=== PATIENT | female | born 1980 | race Caucasian/White ===

== ENCOUNTER 2017-01-24 09:52 | Emergency (ER) | payer OTHER ==
[~2017-01-24] VITALS: Ht 167.6 cm; Wt 81.0 kg
[2017-01-24 09:55] VITALS: BP 144/85; PULSE 94; RESP 16; TEMP 98.4; O2SAT 98
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
[2017-01-24] MEDS ORDERED: ACYC800T PO (10:23)
[2017-01-24] MEDS ORDERED: NEUR100C PO (10:23)
== END 2017-01-24 10:35 | disposition home or self-care (01) ==
LOC: PHEFT 09:52
DX: B02.9 Zoster without complications (principal); S80.862A Insect bite (nonvenomous), left lower leg, initial encounter; S80.861A Insect bite (nonvenomous), right lower leg, initial encounter; S40.862A Insect bite (nonvenomous) of left upper arm, initial encounter; S40.861A Insect bite (nonvenomous) of right upper arm, initial encounter; W57.XXXA Bitten or stung by nonvenomous insect and other nonvenomous arthropods, initial encounter; F17.210 Nicotine dependence, cigarettes, uncomplicated
CPT/HCPCS: 99282

== ENCOUNTER 2017-06-08 17:32 | Emergency (ER) | payer OTHER ==
[~2017-06-08 17:32] MED LIST: ACYC800T PO; NEUR100C PO
[2017-06-08 17:39] VITALS: BP 138/97; PULSE 88; RESP 20; TEMP 99.4; O2SAT 98
[2017-06-08] MEDS ORDERED: RESP: ALBUTEROL 2.5 MG/IPRATROPIUM 0.5 MG NEB (SCH) NEB ONE (18:30)
[2017-06-08] MEDS ORDERED: KETOROLAC TROMETHAMINE 30 MG/ML (IVP) VIAL IV PUSH ONE (18:30)
[2017-06-08] MEDS ORDERED: DEXAMETHASONE SOD PHOS 4 MG/ML VIAL IV PUSH ONE (18:30)
[2017-06-08] MEDS ORDERED: KETOROLAC TROMETHAMINE 60 MG/2 ML (IM) VIAL IM ONE (18:45)
[2017-06-08] MEDS ORDERED: DEXAMETHASONE SOD PHOS 4 MG/ML VIAL IM ONE (18:45)
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
[2017-06-08] MEDS ORDERED: VENTAER INH (19:14)
[2017-06-08] MEDS ORDERED: PRED20 PO (19:14)
[2017-06-08] MEDS ORDERED: MAGICPED SWISH-SWAL (19:15)
== END 2017-06-08 19:23 | disposition home or self-care (01) ==
LOC: PHED 17:32 → PHEFT 19:23
DX: J20.9 Acute bronchitis, unspecified (principal); B97.89 Other viral agents as the cause of diseases classified elsewhere; R51 Headache; R07.0 Pain in throat
CPT/HCPCS: 87081; 87880; 94640; 94664; 96372; 99284; J1100; J1885

== ENCOUNTER 2017-12-26 04:48 | Emergency (ER) | payer OTHER ==
[~2017-12-26 04:48] MED LIST changes: -ACYC800T PO; +MAGICPED SWISH-SWAL; -NEUR100C PO; +PRED20 PO; +VENTAER INH
--- NOTE | 2017-12-26 05:01 | PD ---
HPI Chief Complaint: Intoxication Time Seen by Provider: 04:50 Travel History International Travel<30 days: No Contact w/Intl Traveler<30days: No History of Present Illness HPI 37-year-old woman, apparently brought in by bystanders to being seen intoxicated in public. Patient states she was drinking heavily tonight. Denies any recent illness or injury. No complaints. History Past Medical History Medical History: Denies Significant Hx Social History Alcohol Use: Yes (occaisional) Tobacco Use: No Allergies-Medications (Allergen,Severity, Reaction): Coded Allergies: acetaminophen (Unverified Allergy, Severe, 06/08/17) penicillin G (Unverified Allergy, Severe, 06/08/17) Reported Meds & Prescriptions Reported Meds & Active Scripts Active Magic Mouthwash Pediatric/Adult Liq (Lidocaine/Diphenhydr/Alum/Mg/Simeth) 60 Ml Susp 5 Ml SWISH-SWAL ACHS Each 5mL contains: Diphenydramine 4.5mg, Viscous Lidocaine 2% 10mg, Maalox Advanced Regular Strength 2.7ml Ventolin Hfa 18 GM Inh (Albuterol Sulfate) 90 Mcg/Act Aer 2 Puff INH Q6H PRN Prednisone 20 Mg Tab 40 Mg PO DAILY Take 40 mg (2 tablets) daily for 5 days Review of Systems ROS Limitations: Intoxication Except as stated in HPI: all other systems reviewed are Neg Physical Exam Exam Limitations: Intoxication Narrative GENERAL: 37-year-old woman, slurred speech and intoxication, otherwise no acute distress. SKIN: Focused skin assessment warm/dry. Some scattered abrasions of both knees. HEAD: Atraumatic. Normocephalic. EYES: Pupils equal and round. No scleral icterus. No injection or drainage. ENT: No nasal bleeding or discharge. Mucous membranes pink and moist. NECK: Trachea midline. Moves neck freely, no evidence of tenderness. CARDIOVASCULAR: Regular rate and rhythm. No murmur appreciated. RESPIRATORY: No accessory muscle use. Clear to auscultation. Breath sounds equal bilaterally. GASTROINTESTINAL: Abdomen soft, non-tender, nondistended. Hepatic and splenic margins not palpable. MUSCULOSKELETAL: No obvious deformities. Scabs of the knees, no other evidence of bony injury. NEUROLOGICAL: Awake but sluggishly alert. No obvious cranial nerve deficits. Motor grossly within normal limits. Speech is slurred. Unsteady. MDM Medical Decision Making Medical Screen Exam Complete: Yes Emergency Medical Condition: Yes Differential Diagnosis Intoxication, illicit drug use, sedative hypnotic use, occult injury or trauma, other Narrative Course Medical decision-making 37-year-old woman presents emergency department brought in for intoxication. No evidence of occult injury. No evidence of respiratory depression or compromise. Looks well. Will sober up in the ED, discharge in a.m. Diagnosis Primary Impression: Alcohol intoxication Referrals: [facility] 1 day Additional Instructions: Drink alcohol only in moderation. Drink plenty of fluids stay well-hydrated. Follow-up with [facility] if needed for alcohol abuse treatment. Med/Other Pt SpecificInfo: No Change to Meds Disposition: 01 DISCHARGE HOME Condition: Stable Alfonzo Valderrama MD Dec 26, 2017 05:01
[2017-12-26 05:08] VITALS: BP 103/81; PULSE 96; RESP 18; TEMP 95.3; O2SAT 96
[2017-12-26 06:41] VITALS: BP 132/41; PULSE 96; RESP 20; TEMP 96.2; O2SAT 96
[2017-12-26 08:10] VITALS: BP 119/76; PULSE 118; RESP 17; O2SAT 97
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
[2017-12-26 10:27] VITALS: BP 116/74
== END 2017-12-26 10:29 | disposition home or self-care (01) ==
LOC: PHED 04:48
DX: F10.129 Alcohol abuse with intoxication, unspecified (principal); Z88.0 Allergy status to penicillin
CPT/HCPCS: 99282

== ENCOUNTER 2017-12-27 18:59 | Observation (INO) | payer MEDICAID, OTHER ==
[~2017-12-27] VITALS: Ht 167.6 cm; Wt 78.0 kg
[2017-12-27 19:08] VITALS: BP 139/89; PULSE 80; RESP 16; TEMP 98.4; O2SAT 98
[2017-12-27] MEDS ORDERED: SODIUM CHLOR 0.9% 1000 ML INJ 1,000 ML IV SCH (19:16)
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
[2017-12-27] MEDS ORDERED: SODIUM CHLORIDE 0.9% FLUSH 10 ML FLUSH IVF PRN (19:30)
[2017-12-27] MEDS ORDERED: PANTOPRAZOLE SODIUM 40 MG VIAL IVP ONE (19:30)
--- NOTE | 2017-12-27 20:17 | RADRPT ---
EXAM DATE/TIME: 12/27/2017 19:39 [facility] COMPARISON: No previous studies available for comparison. INDICATIONS : Cory states she swallowed a pen or a knife while intoxicated. Vomiting blood. MEDICAL HISTORY : None. SURGICAL HISTORY : None. ENCOUNTER: Initial ACUITY: 1 day PAIN SCORE: 0/10 LOCATION: Bilateral chest FINDINGS: A single view of the chest demonstrates the lungs to be symmetrically aerated without evidence of mas s, infiltrate or effusion. The cardiomediastinal contours are unremarkable. Osseous structures are intact. CONCLUSION: No acute disease. Lorenzo Bagley MD FACR on December 27, 2017 at 20:15 Board Certified Radiologist. This report was verified electronically.
[2017-12-27 20:27] LABS: AUTOMATED NEUTROPHIL # 3.8 TH/MM3 (1.8-7.7); BASOPHIL % 0.8 % (0.0-2.0); EOSINOPHIL # 0.2 TH/MM3 (0-0.4); EOSINOPHIL % 2.5 % (0.0-4.0); HEMATOCRIT 37.6 % (35.0-46.0); LYMPH % 26.9 % (9.0-44.0); LYMPHOCYTE # 1.6 TH/MM3 (1.0-4.8); MEAN CORPUSCULAR HEMOGLOBIN 33.9 PG (27.0-34.0); MEAN CORPUSCULAR HGB CONC 34.6 % (32.0-36.0); MONOCYTE # 0.5 TH/MM3 (0-0.9); NEUT % 61.8 % (16.0-70.0); PLATELET COUNT 273 TH/MM3 (150-450); RED BLOOD COUNT 3.84 MIL/MM3 (4.00-5.30); RED CELL DISTRIBUTION WIDTH 13.5 % (11.6-17.2); WHITE BLOOD COUNT 6.1 TH/MM3 (4.0-11.0)
[2017-12-27 20:33] LABS: BACTERIA, URINE OCC /hpf; BILIRUBIN, URINE NEG (NEG); BLOOD, URINE LARGE (NEG); GLUCOSE,URINE NEG (NEG); KETONE, URINE NEG (NEG); NITRITE,URINE NEG (NEG); SQUAMOUS EPITHELIAL CELL URINE 2 /hpf (0-5); URINE COLOR LIGHT-YELLOW (YELLW/STRAW); URINE LEUKOCYTE ESTERASE SMALL (NEG)
[2017-12-27 20:42] LABS: INTERNATIONAL NORMALIZED RATIO 0.9 RATIO; PROTHROMBIN TIME - PATIENT 9.5 SEC (9.8-11.6)
[2017-12-27 20:52] LABS: ALKALINE PHOSPHATASE 105 U/L (45-117); ALT (GPT) 77 U/L (10-53); TOTAL BILIRUBIN ADULT 0.5 MG/DL (0.2-1.0); TOTAL PROTEIN 7.1 GM/DL (6.4-8.2)
[2017-12-27 20:55] LABS: ALBUMIN 3.4 GM/DL (3.4-5.0); AST (GOT) 53 U/L (15-37); BICARBONATE 26.2 MEQ/L (21.0-32.0); BLOOD UREA NITROGEN 12 MG/DL (7-18); CALCIUM 8.8 MG/DL (8.5-10.1); CHLORIDE 106 MEQ/L (98-107); GLOMERULAR FILTRATION RATE 93 ML/MIN (>89); GLUCOSE,RANDOM 103 MG/DL (74-106); SODIUM (NA) 137 MEQ/L (136-145)
[2017-12-27 21:00] VITALS: BP 140/88; PULSE 62; RESP 16; O2SAT 99
[2017-12-27] MEDS ORDERED: KETOROLAC TROMETHAMINE 30 MG/ML (IVP) VIAL IV PUSH ONE (21:15)
[2017-12-27] MEDS ORDERED: IOHEXOL 350 MG/ML 10 ML VIAL (for RAD DIAG) IVCONTRAST ONE (22:05)
--- NOTE | 2017-12-27 22:17 | RADRPT ---
EXAM DATE/TIME: 12/27/2017 21:59 [facility] COMPARISON: No previous studies available for comparison. INDICATIONS : Patient swallowed an unknown object, hemoptysis. IV CONTRAST: 100 cc Omnipaque 350 (iohexol) IV ORAL CONTRAST: No oral contrast ingested. RADIATION DOSE: 7.31 CTDIvol (mGy) MEDICAL HISTORY : None SURGICAL HISTORY : Hysterectomy. ENCOUNTER: Initial ACUITY: 4 - 6 days PAIN SCALE: 5/10 LOCATION: Bilateral lower quadrant TECHNIQUE: Volumetric scanning of the abdomen and pelvis was performed. Using automated exposure control and ad justment of the mA and/or kV according to patient size, radiation dose was kept as low as reasonably achievable to obtain optimal diagnostic quality images. DICOM format image data is available electro nically for review and comparison. FINDINGS: On the hooker machine tender film there is radiopaque foreign body in the stomach that looks like the end of an ink p en. KUB is much more sensitive for such. Lower lungs are clear. Moderate fatty replacement of the liver without ductal dilatation The spleen and pancreas are unremarkable. The adrenals and kidneys appear unremarkable There is no retroperitoneal adenopathy Cecum, and appendix appear unremarkable In the Pelvis scattered diverticula are noted without diverticulitis The bladder and adnexal regions are unremarkable There is no ascites Review of bone windows reveals only degenerative changes. CONCLUSION: Radiopaque foreign body in the fundus of the stomach as above. 1. Moderate fatty replacement in the liver Lorenzo Bagley MD FACR on December 27, 2017 at 22:10 Board Certified Radiologist. This report was verified electronically.
[2017-12-27] MEDS ORDERED: LORazepam 1 MG TAB PO PRN (23:45)
[2017-12-27] MEDS ORDERED: LORazepam 2 MG/ML VIAL IV PUSH PRN ×3 (23:45)
[2017-12-27] MEDS ORDERED: LORazepam 2 MG TAB PO PRN (23:45)
[2017-12-27] MEDS ORDERED: FLUMAZENIL 0.5 MG/5 ML VIAL IV PUSH PRN (23:45)
[2017-12-27] MEDS ORDERED: ONDANSETRON HCL 4 MG/2 ML VIAL IV PUSH PRN (23:45)
[2017-12-27] MEDS ORDERED: SODIUM CHLORIDE 0.9% FLUSH 10 ML FLUSH IV FLUSH PRN (23:45)
[2017-12-28] VITALS: BP 140/88; PULSE 80; RESP 18; O2SAT 99
[2017-12-28] MEDS ORDERED: FOLI1TAB6 PO (00:02)
[2017-12-28] MEDS ORDERED: VIST50CA PO (00:02)
[2017-12-28] MEDS ORDERED: LORA-474 PO (00:02)
[2017-12-28] MEDS ORDERED: VITA100T54 PO (00:02)
[2017-12-28] MEDS ORDERED: IBUP1TAB7 PO (00:02)
[2017-12-28] MEDS ORDERED: PROM25TA10 PO (00:02)
[2017-12-28] MEDS ORDERED: CLON0.1T PO (00:02)
--- NOTE | 2017-12-28 00:36 | HHI.HP ---
[facility] No Primary Care Physician Admission Diagnosis FB ingestion with hematemesis Diagnoses: Travel History International Travel<30 Days: No Contact w/Intl Traveler <30 Da: No Traveled to Known Affected Are: No History of Present Illness 37-year-old female with a past medical history significant for alcohol abuse presents to the emergency department for evaluation of hematemesis. The patient is on day 3 of detox from alcohol at [facility] when she had 3 episodes of bloody emesis. She reports that she and her friends were drinking 3 days ago and she remembers swallowing a pen. She denies any current abdominal pain. No chest pain or shortness of breath. Mild tremors. No nausea /diarrhea. No weakness. Review of Systems Except as stated in HPI: all other systems reviewed are Neg Past Family Social History Past Medical History Alcohol abuse History of uterine cancer Past Surgical History Hysterectomy with bilateral nephrectomy Breast augmentation Reported Medications Reported Meds & Active Scripts Active Reported Clonidine (Clonidine HCl) 0.1 Mg Tab 0.1 Mg PO BID Vistaril (Hydroxyzine Pamoate) 50 Mg Cap 50 Mg PO HS Folic Acid 1 Mg Tablet 1 Mg PO DAILY Vitamin B-1 (Thiamine HCl) 100 Mg Tab 100 Mg PO DAILY Phenergan (Promethazine HCl) 25 Mg Tablet 25 Mg PO Q6H PRN Ibuprofen 800 Mg Tab 800 Mg PO Q8H PRN Ativan (Lorazepam) 1 Mg Tab 1 Mg PO Q8H PRN Allergies: Coded Allergies: acetaminophen (Unverified Allergy, Severe, 12/27/17) penicillin G (Unverified Allergy, Severe, 12/27/17) Family History Mother with diabetes and coronary artery disease. Father at 42 of an [place]. Social History Smokes approximately one pack per day. Quit alcohol 3 days ago, prior to this was drinking approximately 2 L of vodka daily. Denies illicit drugs. Physical Exam Vital Signs Vital Signs Date Time Temp Pulse Resp B/P (MAP) Pulse Ox O2 Delivery O2 Flow Rate FiO2 12/27/17 21:00 62 16 140/88 (105) 99 Room Air 12/27/17 19:08 98.4 80 16 139/89 (705) 98 Physical Exam GENERAL: female lying in bed SKIN: No rashes, ecchymoses or lesions. Cool and dry. HEAD: Atraumatic. Normocephalic. No temporal or scalp tenderness. EYES: Pupils equal round and reactive. Extraocular motions intact. No scleral icterus. No injection or drainage. ENT: Nose without bleeding, purulent drainage or septal hematoma. Throat without erythema, tonsillar hypertrophy or exudate. Uvula midline. Airway patent. NECK: Trachea midline. No JVD or lymphadenopathy. Supple, nontender, no meningeal signs. CARDIOVASCULAR: Regular rate and rhythm without murmurs, gallops, or rubs. RESPIRATORY: Clear to auscultation. Breath sounds equal bilaterally. No wheezes , rales, or rhonchi. GASTROINTESTINAL: Abdomen soft, diffusely tender to palpation, greatest in the right upper quadrant, nondistended. No hepato-splenomegaly, or palpable masses. No guarding. MUSCULOSKELETAL: Extremities without clubbing, cyanosis, or edema. No joint tenderness, effusion, or edema noted. No calf tenderness. NEUROLOGICAL: Awake and alert. Cranial nerves II through XII intact. Motor and sensory grossly within normal limits. Normal speech. Laboratory Laboratory Tests Test 12/27/17 19:50 White Blood Count 6.1 Red Blood Count 3.84 Hemoglobin 13.0 Hematocrit 37.6 Mean Corpuscular Volume 98.0 Mean Corpuscular Hemoglobin 33.9 Mean Corpuscular Hemoglobin Concent 34.6 Red Cell Distribution Width 13.5 Platelet Count 273 Mean Platelet Volume 8.0 Neutrophils (%) (Auto) 61.8 Lymphocytes (%) (Auto) 26.9 Monocytes (%) (Auto) 8.0 Eosinophils (%) (Auto) 2.5 Basophils (%) (Auto) 0.8 Neutrophils # (Auto) 3.8 Lymphocytes # (Auto) 1.6 Monocytes # (Auto) 0.5 Eosinophils # (Auto) 0.2 Basophils # (Auto) 0.0 CBC Comment DIFF FINAL Differential Comment Prothrombin Time 9.5 Prothromb Time International Ratio 0.9 Activated Partial Thromboplast Time 22.7 Urine Color LIGHT-YELLOW Urine Turbidity CLEAR Urine pH 8.0 Urine Specific [place] 1.010 Urine Protein NEG Urine Glucose (UA) NEG Urine Ketones NEG Urine Occult Blood LARGE Urine Nitrite NEG Urine Bilirubin NEG Urine Urobilinogen LESS THAN 2.0 Urine Leukocyte Esterase SMALL Urine RBC 103 Urine WBC 31 Urine Squamous Epithelial Cells 2 Urine Bacteria OCC Microscopic Urinalysis Comment CULTURE INDICATED Blood Urea Nitrogen 12 Creatinine 0.70 Random Glucose 103 Total Protein 7.1 Albumin 3.4 Calcium Level 8.8 Alkaline Phosphatase 105 Aspartate Amino Transf (AST/SGOT) 53 Alanine Aminotransferase (ALT/SGPT) 77 Total Bilirubin 0.5 Sodium Level 137 Potassium Level 5.0 Chloride Level 106 Carbon Dioxide Level 26.2 Anion Gap 5 Estimat Glomerular Filtration Rate 93 Lipase 517 Ethyl Alcohol Level LESS THAN 3 Date/Time Source Procedure Growth Status 12/27/17 19:50 Urine Clean Catch Urine Culture Pending Received Result Diagram: 12/27/17194912/27/171949 Fina VTE Risk Assessment Fina VTE Risk Assessment: No/Low Risk (score <= 1) Fina Risk Assessment Model Point Value = 1 Point Value = 2 Point Value = 3 Point Value = 5 Age 41-60 Minor surgery BMI > 25 kg/m2 Swollen legs Varicose veins or History of unexplained or recurrent spontaneous Oral contraceptives or hormone replacement Sepsis (< 1 month) Serious lung disease, including pneumonia (< 1 month) Abnormal pulmonary function Acute myocardial infarction Congestive heart failure (< 1 month) History of inflammatory bowel disease Medical patient at bed rest Age 61-74 Arthroscopic surgery Major open surgery (> 45 min) Laparoscopic surgery (> 45 min) Malignancy Confined to bed (> 72 hours) Immobilizing plaster cast Central venous access Age >= 75 History of VTE Family history of VTE Factor V Leiden Prothrombin [id number] Lupus anticoagulant Anticardiolipin antibodies Elevated serum homocysteine Heparin-induced thrombocytopenia Other congenital or acquired thrombophilia Stroke (< 1 month) Elective arthroplasty Hip, pelvis, or leg fracture Acute spinal cord injury (< 1 month) Prophylaxis Regimen Total Risk Factor Score Risk Level Prophylaxis Regimen 0-1 Low Early ambulation 2 Moderate Order ONE of the following: *Sequential Compression Device (SCD) *Heparin 5000 units SQ BID 3-4 Higher Order ONE of the following medications: *Heparin 5000 units SQ TID *Enoxaparin/Lovenox 40 mg SQ daily (WT < 150 kg, CrCl > 30 mL/min) *Enoxaparin/Lovenox 30 mg SQ daily (WT < 150 kg, CrCl > 10-29 mL/min) *Enoxaparin/Lovenox 30 mg SQ BID (WT < 150 kg, CrCl > 30 mL/min) AND/OR *Sequential Compression Device (SCD) 5 or more Highest Order ONE of the following medications: *Heparin 5000 units SQ TID (Preferred with Epidurals) *Enoxaparin/Lovenox 40 mg SQ daily (WT < 150 kg, CrCl > 30 mL/min) *Enoxaparin/Lovenox 30 mg SQ daily (WT < 150 kg, CrCl > 10-29 mL/min) *Enoxaparin/Lovenox 30 mg SQ BID (WT < 150 kg, CrCl > 30 mL/min) AND *Sequential Compression Device (SCD) Assessment and Plan Assessment and Plan Assessment/plan 1. Foreign body ingestion CT of the abdomen/pelvis shows a radiopaque foreign body in the fundus of the stomach, personally reviewed Gastroenterology consulted, appreciate assistance Nothing by mouth 2. Alcohol abuse Patient quit drinking 3 days ago Thiamine/folate/multivitamins [facility] protocol Monitor for signs of withdrawal FEN NPO Electrolytes: Monitor and replete when necessary NS at 100 cc/hr Kiera Garcia MD Dec 28, 2017 00:36
[2017-12-28] MEDS: SODIUM CHLOR 0.9% 1000 ML INJ 1,000 ML IV SCH ×2 (00:43→09:35)
[2017-12-28] MEDS: LORazepam 2 MG/ML VIAL IV PUSH PRN ×3 (00:43→09:36)
[2017-12-28] MEDS ORDERED: THIAMINE INJ 100 MG in SODIUM CHLORIDE 0.9% INJ 100 ML IV SCH (01:45)
[2017-12-28 01:50] VITALS: BP 138/82
[2017-12-28 02:13] LABS: AUTOMATED NEUTROPHIL # 4.2 TH/MM3 (1.8-7.7); BASOPHIL # 0.1 TH/MM3 (0-0.2); BASOPHIL % 0.8 % (0.0-2.0); EOSINOPHIL # 0.2 TH/MM3 (0-0.4); EOSINOPHIL % 2.7 % (0.0-4.0); HEMATOCRIT 37.2 % (35.0-46.0); HEMOGLOBIN 12.9 GM/DL (11.6-15.3); LYMPH % 25.7 % (9.0-44.0); LYMPHOCYTE # 1.7 TH/MM3 (1.0-4.8); MEAN CELL VOLUME 99.4 FL (80.0-100.0); MEAN CORPUSCULAR HEMOGLOBIN 34.4 PG (27.0-34.0); MEAN CORPUSCULAR HGB CONC 34.6 % (32.0-36.0); MEAN PLATELET VOLUME 7.4 FL (7.0-11.0); MONO % 7.3 % (0.0-8.0); MONOCYTE # 0.5 TH/MM3 (0-0.9); NEUT % 63.5 % (16.0-70.0); PLATELET COUNT 265 TH/MM3 (150-450); RED BLOOD COUNT 3.75 MIL/MM3 (4.00-5.30); RED CELL DISTRIBUTION WIDTH 13.2 % (11.6-17.2); WHITE BLOOD COUNT 6.7 TH/MM3 (4.0-11.0)
[2017-12-28 02:40] LABS: ALKALINE PHOSPHATASE 91 U/L (45-117); ALT (GPT) 67 U/L (10-53); AST (GOT) 34 U/L (15-37); BICARBONATE 22.1 MEQ/L (21.0-32.0); BLOOD UREA NITROGEN 11 MG/DL (7-18); CALCIUM 8.3 MG/DL (8.5-10.1); CHLORIDE 111 MEQ/L (98-107); CREATININE 0.49 MG/DL (0.50-1.00); GLOMERULAR FILTRATION RATE 141 ML/MIN (>89); GLUCOSE,RANDOM 93 MG/DL (74-106); SODIUM (NA) 140 MEQ/L (136-145); TOTAL BILIRUBIN ADULT 0.4 MG/DL (0.2-1.0); TOTAL PROTEIN 6.4 GM/DL (6.4-8.2)
[2017-12-28 04:46] VITALS: BP 137/88; PULSE 69; RESP 16; TEMP 97.8; O2SAT 98
[2017-12-28 06:58] LABS: HEMATOCRIT 36.6 % (35.0-46.0); HEMOGLOBIN 12.5 GM/DL (11.6-15.3)
[2017-12-28 07:33] VITALS: BP 151/89; PULSE 76; RESP 18; TEMP 97.6; O2SAT 98
--- NOTE | 2017-12-28 08:33 | HHI.PR ---
Subjective Remarks Follow-up for foreign body ingestion and alcohol withdrawal. Patient reports feeling very tremulous this morning, she had minimal relief with IV Ativan. She reports drinking 2 L of vodka daily and sometimes an additional 1/5 of whiskey. She is at [facility] voluntarily. She reports three days ago she was intoxicated she remembers messing around with her friends and swallowed a pen. Yesterday she started having vomiting with three episodes of hematemesis. She reports diffuse upper abdominal pain, and is requesting IV Toradol. Denies any diarrhea or constipation. She is hungry and wants to eat. She has no other medical complaints at this time. Discussed with RN, reporting patient with hallucinations this morning. The patient was talking to people in the room that were not there. Discussed this with the patient, she reports she was hearing voices, but when she looked up she would not see anybody in the room. She denies any psychiatric history. Objective Vitals Vital Signs Date Time Temp Pulse Resp B/P (MAP) Pulse Ox O2 Delivery O2 Flow Rate FiO2 12/28/17 07:33 97.6 76 18 151/89 (109) 98 12/28/17 04:46 97.8 69 16 137/88 (104) 98 12/28/17 01:50 70 16 138/82 (100) 99 12/28/17 00:00 80 18 140/88 (105) 99 Room Air 12/27/17 21:00 62 16 140/88 (105) 99 Room Air 12/27/17 19:08 98.4 80 16 139/89 (106) 98 I/O 12/27/17 12/27/17 12/27/17 12/28/17 12/28/17 12/28/17 07:00 15:00 23:00 07:00 15:00 23:00 Intake Total 1000 ml 300 ml Output Total 40 ml Balance 960 ml 300 ml Intake IV Total 1000 ml 300 ml Output Emesis 40 ml # Voids 1 Result Diagram: 12/28/17 0625 12/28/17 0145 Imaging Last Impressions Chest X-Ray 12/27/176 Signed Impressions: Service Date/Time: Wednesday, December 27, 2017 19:39 - CONCLUSION: No acute disease. Lorenzo Bagley MD FACR Abdomen/Pelvis CT 12/27/17 0000 Signed Impressions: Service Date/Time: Wednesday, December 27, 2017 21:59 - CONCLUSION: Radiopaque foreign body in the fundus of the stomach as above. 1. Moderate fatty replacement in the liver Lorenzo Bagley MD FACR Objective Remarks GENERAL: Well-nourished, well-developed middle-aged female patient in [facility]. Tremulous. SKIN: Warm and dry. No rash. HEENT: Normocephalic. Atraumatic.Pupils equal and round. Mucous membranes pink and moist. CARDIOVASCULAR: Regular rate and rhythm. No murmur appreciated. RESPIRATORY: No accessory muscle use. Clear to auscultation. Breath sounds equal bilaterally. GASTROINTESTINAL: Abdomen soft, nondistended, TTP throughout upper abdomen. Normoactive bowel sounds x4. MUSCULOSKELETAL: No obvious deformities. Extremities without clubbing, cyanosis , or edema. NEUROLOGICAL: Awake and alert. No obvious cranial nerve deficits. Motor grossly within normal limits. Normal speech. PSYCHIATRIC: Appropriate mood and affect; insight and judgment normal. Procedures 12/28 - patient going for EGD today with foreign body removal Medications and IVs Current Medications Medications (Trade) Dose Ordered Sig/Eligio Route Start Time Stop Time Status Last Admin (NS Flush) 2 ml UNSCH PRN IVF 12/27/17 19:30 12/27/17 21:52 (NS Flush) 2 ml UNSCH PRN IV FLUSH 12/27/17 23:45 (NS Flush) 2 ml BID IV FLUSH 12/28/17 09:00 Sodium Chloride 1,000 ml @ 100 mls/hr Q10H IV 12/28/17 00:00 12/28/17 09:35 (Protonix Inj) 40 mg BID IV PUSH 12/28/17 09:00 12/28/17 09:35 Thiamine HCl 100 mg/Sodium Chloride 101 ml @ 100 mls/hr Q24H IV 12/28/17 01:45 12/28/17 03:21 (Zofran Inj) 4 mg Q6H PRN IV PUSH 12/27/17 23:45 (Folate) 1 mg DAILY PO 12/28/17 09:00 01/02/18 08:59 (Theragran M Tab) 1 tab DAILY PO 12/28/17 09:00 01/02/18 08:59 (Romazicon Inj) 0.2 mg Q1M PRN IV PUSH 12/27/17 23:45 (Ativan) 1 mg Q4H PRN PO 12/27/17 23:45 (Ativan Inj) 1 mg Q4H PRN IV PUSH 12/27/17 23:45 12/28/17 09:36 (Ativan) 2 mg Q2H PRN PO 12/27/17 23:45 (Ativan Inj) 2 mg Q2H PRN IV PUSH 12/27/17 23:45 12/28/17 07:15 (Ativan Inj) 2 mg Q1H PRN IV PUSH 12/27/17 23:45 (Ativan Inj) 2 mg Q15M PRN IV PUSH 12/27/17 23:45 (Toradol Inj) 15 mg Q6HR IV PUSH 12/28/17 12:00 A/P Problem List: (1) Alcohol withdrawal ICD Code: F10.239 - Alcohol dependence with withdrawal, unspecified (2) Foreign body ingestion ICD Code: T18.9XXA - Foreign body of alimentary tract, part unspecified, initial encounter Status: Acute (3) Hematemesis ICD Code: K92.0 - Hematemesis Status: Acute Assessment and Plan 37-year-old female with history of alcohol abuse, currently admitted voluntarily to [facility] for alcohol detox, presents with hematemesis after foreign body ingestion Foreign body ingestion: Patient reportedly swallowed a pen while intoxicated. -CT abdomen/pelvis images reviewed, shows radiopaque foreign body within the fundus of the stomach -Keep NPO -Pain control with IV Toradol -Consult GI, plan for EGD with possible foreign body removal today Hematemesis: Likely secondary to above -Monitor H&H, currently stable with hemoglobin 12.5 -Continue IV Protonix bid -Antiemetics as needed Alcohol withdrawal: Patient drinks extremely high amounts of alcohol, 2 L of vodka daily and occasionally an additional fifth of whiskey. -Continue thiamine/folate/multivitamin -Continue CIWA protocol -Librium 25mg tid prn -Monitor closely for DTs -seizure precautions -patient will need to return to [facility] when medically cleared DVT Prophylaxis: teds/SCDs, avoid chemoprophylaxis with upcoming procedure Discharge Planning Likely discharge today if foreign body removed and no further hematemesis. Will return to [facility] at discharge. 1230hrs: Notified by Asuncion OCONNOR, patient signing out AMA. She has returned from her EGD with successful removal of foreign body. The patient is AAOx4 per RN. Nurse also verified patient is voluntary at [facility]. By the time I arrived on the unit, the patient has already signed out AGAINST MEDICAL ADVICE. Discharge patient AGAINST MEDICAL ADVICE Condition on discharge: Improved Regular Diet as tolerated Ad Nayeli activity Rx written: none Follow-up with primary care physician Problem Qualifiers (1) Foreign body ingestion: Qualified Codes: T18.9XXA - Foreign body of alimentary tract, part unspecified , initial encounter (2) Hematemesis: Qualified Codes: K92.0 - Hematemesis Stephanie Cano PA-C Dec 28, 2017 8:33 am
[2017-12-28] MEDS ORDERED: KETOROLAC TROMETHAMINE 30 MG/ML (IVP) VIAL IV PUSH ONE (08:45)
--- NOTE | 2017-12-28 08:57 | PD.CONS ---
HPI History of Present Illness This is a 37 year old female with hx etoh abuse who presented for hematemesis. Yesterday she had 3 x episodes of hematemesis. Never had before. She was undergoing etoh detox at [facility] and is eager to return. She admits upper quadrant pain worse in RUQ that also started yesterday. Denies blood in stool or black tarry stool. 4 days ago prior to going to [facility] she was intoxicated and swallowed either a pen or a knife, she cannot remember exactly. never had an EGD or colonoscopy. Not on blood thinners. (Priyanka Hawkins) PFSH Past Medical History Alcohol abuse History of uterine cancer Past Surgical History Hysterectomy with bilateral nephrectomy Breast augmentation (Priyanka Hawkins) Coded Allergies: acetaminophen (Unverified Allergy, Severe, 12/27/17) penicillin G (Unverified Allergy, Severe, 12/27/17) Family History Mother with diabetes and coronary artery disease. Father at 42 of an [place]. Social History Smokes approximately one pack per day. Quit alcohol 3 days ago, prior to this was drinking approximately 2 L of vodka daily. Denies illicit drugs. (Priyanka Hawkins) Review of Systems Constitutional: DENIES: Fever Endocrine: DENIES: Polydipsia Eyes: DENIES: Blurred vision Ears, nose, mouth, throat: DENIES: Hearing loss Respiratory: DENIES: Cough Cardiovascular: DENIES: Chest pain Gastrointestinal: COMPLAINS OF: Abdominal pain, Nausea, Vomiting, Hematemesis, DENIES: Black stools, Bloody stools, Diarrhea Genitourinary: DENIES: Hematuria Musculoskeletal: DENIES: Muscle aches Integumentary: DENIES: Abnormal pigmentation Hematologic/lymphatic: DENIES: Bruising Immunologic/allergic: DENIES: Eczema Neurologic: DENIES: Abnormal gait Psychiatric: COMPLAINS OF: Anxiety (Priyanka Hawkins) GI Exam Vitals I&O Vital Signs Date Time Temp Pulse Resp B/P (MAP) Pulse Ox O2 Delivery O2 Flow Rate FiO2 12/28/17 07:33 97.6 76 18 151/89 (109) 98 12/28/17 04:46 97.8 69 16 137/88 (104) 98 12/28/17 01:50 70 16 138/82 (100) 99 12/28/17 00:00 80 18 140/88 (105) 99 Room Air 12/27/17 21:00 62 16 140/88 (105) 99 Room Air 12/27/17 19:08 98.4 80 16 139/89 (106) 98 I/O 12/27/17 12/27/17 12/27/17 12/28/17 12/28/17 12/28/17 07:00 15:00 23:00 07:00 15:00 23:00 Intake Total 1000 ml 300 ml Output Total 40 ml Balance 960 ml 300 ml Intake IV Total 1000 ml 300 ml Output Emesis 40 ml # Voids 1 Imaging Last Impressions Chest X-Ray 12/27/17 1916 Signed Impressions: Service Date/Time: Wednesday, December 27, 2017 19:39 - CONCLUSION: No acute disease. Lorenzo Bagley MD FACR Abdomen/Pelvis CT 12/27/17 0000 Signed Impressions: Service Date/Time: Wednesday, December 27, 2017 21:59 - CONCLUSION: Radiopaque foreign body in the fundus of the stomach as above. 1. Moderate fatty replacement in the liver Lorenzo Bagley MD FACR Laboratory Test 12/27/17 19:50 12/28/17 01:45 12/28/17 06:25 White Blood Count 6.1 TH/MM3 6.7 TH/MM3 Red Blood Count 3.84 MIL/MM3 3.75 MIL/MM3 Hemoglobin 13.0 GM/DL 12.9 GM/DL 12.5 GM/DL Hematocrit 37.6 % 37.2 % 36.6 % Mean Corpuscular Volume 98.0 FL 99.4 FL Mean Corpuscular Hemoglobin 33.9 PG 34.4 PG Mean Corpuscular Hemoglobin Concent 34.6 % 34.6 % Red Cell Distribution Width 13.5 % 13.2 % Platelet Count 273 TH/MM3 265 TH/MM3 Mean Platelet Volume 8.0 FL 7.4 FL Neutrophils (%) (Auto) 61.8 % 63.5 % Lymphocytes (%) (Auto) 26.9 % 25.7 % Monocytes (%) (Auto) 8.0 % 7.3 % Eosinophils (%) (Auto) 2.5 % 2.7 % Basophils (%) (Auto) 0.8 % 0.8 % Neutrophils # (Auto) 3.8 TH/MM3 4.2 TH/MM3 Lymphocytes # (Auto) 1.6 TH/MM3 1.7 TH/MM3 Monocytes # (Auto) 0.5 TH/MM3 0.5 TH/MM3 Eosinophils # (Auto) 0.2 TH/MM3 0.2 TH/MM3 Basophils # (Auto) 0.0 TH/MM3 0.1 TH/MM3 CBC Comment DIFF FINAL DIFF FINAL Differential Comment Prothrombin Time 9.5 SEC Prothromb Time International Ratio 0.9 RATIO Activated Partial Thromboplast Time 22.7 SEC Urine Color LIGHT-YELLOW Urine Turbidity CLEAR Urine pH 8.0 Urine Specific [place] 1.010 Urine Protein NEG mg/dL Urine Glucose (UA) NEG mg/dL Urine Ketones NEG mg/dL Urine Occult Blood LARGE Urine Nitrite NEG Urine Bilirubin NEG Urine Urobilinogen LESS THAN 2.0 MG/DL Urine Leukocyte Esterase SMALL Urine RBC 103 /hpf Urine WBC 31 /hpf Urine Squamous Epithelial Cells 2 /hpf Urine Bacteria OCC /hpf Microscopic Urinalysis Comment CULTURE INDICATED Blood Urea Nitrogen 12 MG/DL 11 MG/DL Creatinine 0.70 MG/DL 0.49 MG/DL Random Glucose 103 MG/DL 93 MG/DL Total Protein 7.1 GM/DL 6.4 GM/DL Albumin 3.4 GM/DL 3.0 GM/DL Calcium Level 8.8 MG/DL 8.3 MG/DL Alkaline Phosphatase 105 U/L 91 U/L Aspartate Amino Transf (AST/SGOT) 53 U/L 34 U/L Alanine Aminotransferase (ALT/SGPT) 77 U/L 67 U/L Total Bilirubin 0.5 MG/DL 0.4 MG/DL Sodium Level 137 MEQ/L 140 MEQ/L Potassium Level 5.0 MEQ/L 4.0 MEQ/L Chloride Level 106 MEQ/L 111 MEQ/L Carbon Dioxide Level 26.2 MEQ/L 22.1 MEQ/L Anion Gap 5 MEQ/L 7 MEQ/L Estimat Glomerular Filtration Rate 93 ML/MIN 141 ML/MIN Lipase 517 U/L Ethyl Alcohol Level LESS THAN 3 MG/DL Date/Time Source Procedure Growth Status 12/27/17 19:50 Urine Clean Catch Urine Culture Pending Received Physical Examination HEENT: PERRL; normocephalic; atraumatic; no jaundice. CHEST: CTA CARDIAC: RRR ABDOMEN: Soft, mildly distended, diffuse TTP > RUQ; no hepatosplenomegaly; bowel sounds are present in all four quadrants. EXTREMITIES: No clubbing, cyanosis, or edema. SKIN: Normal; no rash; no jaundice. [employer]: No focal deficits; alert and oriented times three. (Priyanka Hawkins) Assessment and Plan Plan ASSESSMENT - hematemesis, abd pain, foreign body - likely d/t foreign body. no prior hx GIB. in detox for ETOH. swallowed object while intoxicated [address] shows foreign body in stomach. HH WNL currently, no hematemesis today. PLAN - EGD with foreign body removal today - NPO - obtain consent - pain mgmt - etoh cessation - further recs to follow pt seen by myself and Dr Bethea and this note is on his behalf (Priyanka Hawkins) Physician Comments Seen and examined with JUN, admitted with hemetemesis and foreign body ingestion. EGD with foreign body removal planned. NPO with IVF. Thank you (Carlito Bethea MD) Priyanka Hawkins Dec 28, 2017 08:57 Carlito Bethea MD Dec 28, 2017 12:36
[2017-12-28] MEDS ORDERED: SODIUM CHLORIDE 0.9% FLUSH 10 ML FLUSH IV FLUSH SCH (09:00)
[2017-12-28] MEDS ORDERED: PANTOPRAZOLE SODIUM 40 MG VIAL IV PUSH SCH (09:00)
[2017-12-28] MEDS ORDERED: FOLIC ACID 1 MG TAB PO SCH (09:00)
[2017-12-28] MEDS ORDERED: MULTIVITAMINS/MINERALS THERAPEUTIC TAB PO SCH (09:00)
[2017-12-28] MEDS ORDERED: chlordiazePOXIDE 25 MG CAP PO PRN (10:00)
[2017-12-28] MEDS ORDERED: LACTATED RINGER'S 1000 ML IV PRN (11:00)
[2017-12-28] MEDS ORDERED: POVIDONE IODINE 5% (ANTISEPSIS KIT) 4 APPLICATIONS EACH NARE PRN (11:00)
[2017-12-28] MEDS ORDERED: METOPROLOL TARTRATE 25 MG TAB PO PRN (11:00)
[2017-12-28] MEDS ORDERED: CHLORHEXIDINE GLUCONATE 2 % 1 PACK (2 CLOTHS) TOPICAL PRN (11:00)
--- NOTE | 2017-12-28 11:28 | GIPROC ---
[facility] [address] [facility]. [facility], [address] EGD PROCEDURE REPORT EXAM DATE: 12/28/2017 PATIENT NAME: Cathleen Galloway MR #: [id number] BIRTHDATE: 1980 ATTENDING: Carlito Bethea MD ORDER #: [id number] STAFF DEVELOPMENT NURSE: Freeman Key and Denia Diallo STATUS: inpatient INDICATIONS: The patient is a 37 yr old female here for an EGD due to foreign body removal and hematemesis PROCEDURE PERFORMED: EGD w/ fb removal MEDICATIONS: None and Per Anesthesia. TOPICAL ANESTHETIC: CONSENT: The patient understands the risks and benefits of the procedure and understands that these risks include, but are not limited to: sedation, allergic reaction, infection, perforation and/or bleeding. Alternative means of evaluation and treatment include, among others: physical exam, x-rays, and/or surgical intervention. The patient elects to proceed with this endoscopic procedure. medical equipment was checked for proper function. Hand hygiene and appropriate measures for infection prevention was taken. After the risks, benefits and alternatives of the procedure were thoroughly explained, Informed consent was verified, confirmed and timeout was successfully executed by the treatment team. The patient was anesthetized with topical anesthesia and the Pentax EG-[id number] endoscope was introduced through the mouth and advanced to the second portion of the duodenum. Retroflexed views revealed no abnormalities The gastroscope was then slowly withdrawn and removed. ESOPHAGUS: There was LA Class A esophagitis noted. STOMACH: There was moderate gastritis in the gastric antrum. Pen in the stomach. Riley placed on the scope. Pen grabbed and removed through the mouth easily. DUODENUM: The duodenal mucosa appeared normal in the bulb and second portion of the duodenum. ADVERSE EVENTS: There were no complications. IMPRESSIONS: 1. There was LA Class A esophagitis noted 2. There was gastritis in the gastric antrum; Pen in the stomach. Riley placed on the scope. Pen grabbed and removed through the mouth easily 3. Normal duodenal mucosa in the bulb and second portion of the duodenum 4. Retroflexed views revealed no abnormalities RECOMMENDATIONS: 1. Anti-reflux regimen 2. Continue PPI 3. DO not swallow foreign objects!! PATIENT CONDITION: stable DISPOSITION: Inpatient REPEAT EXAM: Return 1 year EGD Carlito Bethea MD eSigned: Carlito Bethea MD 12/28/2017 11:28 AM cc: PATIENT NAME: Cathleen Galloway MR#: [id number]
[2017-12-28 11:55] VITALS: BP 132/69; PULSE 80; RESP 16; TEMP 98; O2SAT 98
[2017-12-28] MEDS ORDERED: DO NOT ADM ANY ANTICOAGULANT DRUGS PRN (12:00)
[2017-12-28] MEDS ORDERED: PROPOFOL 200 MG/20 ML AMP IV ONE ×2 (12:00)
[2017-12-28] MEDS ORDERED: KETOROLAC TROMETHAMINE 30 MG/ML (IVP) VIAL IV PUSH SCH (12:00)
[2017-12-28] MEDS ORDERED: LIDOCAINE HCL 1% PF 5 ML SYRINGE OTHER ONE ×2 (12:00)
[2017-12-28] MEDS ORDERED: SUCCINYLCHOLINE CHLORIDE 100 MG/5 ML SYRINGE IV PUSH ONE (12:00)
[2017-12-28] MEDS ORDERED: MIDAZOLAM HCL 2 MG/2 ML VIAL ONE ×2 (12:19)
== END 2017-12-28 15:32 | disposition left against medical advice (07) ==
LOC: NEPD 18:59 → NEDA 23:05 → NEPHCDU 12-28 02:24
PROVIDERS: ADMIT Internal Medicine; ATTEND Internal Medicine
DX: T18.2XXA Foreign body in stomach, initial encounter (principal); K92.0 Hematemesis; F10.239 Alcohol dependence with withdrawal, unspecified; R44.3 Hallucinations, unspecified; R10.13 Epigastric pain; K76.0 Fatty (change of) liver, not elsewhere classified; F17.200 Nicotine dependence, unspecified, uncomplicated; Z79.899 Other long term (current) drug therapy; Z85.42 Personal history of malignant neoplasm of other parts of uterus
CPT/HCPCS: 71045; 74177; 80053; 80307; 81001; 83690; 84703; 85014; 85018; 85025; 85610; 85730; 86850; 86900; 86901; 87077; 87086; 87186; 96361; 96365; 96375; 96376; 99285; C9113; G0378; J0330; J1885; J2060; J2250; J3010; J3411; J7030; Q9967